=== PATIENT | female | born 2000 | race Caucasian/White ===

== ENCOUNTER 2023-09-08 00:14 | Emergency (ER) | payer BC ==
[~2023-09-08] VITALS: Ht 167.6 cm; Wt 77.1 kg
[2023-09-08] MEDS ORDERED: ONDANSETRON HCL/PF 4 MG/2 ML VIAL ONE (00:37)
[2023-09-08] MEDS ORDERED: IV NS 0.9% 1,000 ML BAG IV ONE (01:00)
[2023-09-08] MEDS ORDERED: ONDANSETRON HCL/PF 4 MG/2 ML VIAL IVP ONE (01:00)
[2023-09-08 05:30] VITALS: BP 126/74; TEMP 98.1; O2SAT 99
== END 2023-09-08 05:39 | disposition home or self-care (01) ==
LOC: ER 00:20
DX: F10.129 Alcohol abuse with intoxication, unspecified (principal); R11.10 Vomiting, unspecified; Y90.9 Presence of alcohol in blood, level not specified
CPT/HCPCS: 99283; 96374; 96361; 82962; J2405; J7030